=== PATIENT | female | born 1960 | race Two or more races ===

== ENCOUNTER → 2017-10-22 | Outpatient (CLI) | payer OTHER ==
[~2017-10-22] MED LIST: BENZONATATE200 M1 PO; CIPRO500 MG PO; CLONAZEPAM0.5 MG PO; DILTIAZEM HCL120 MG PO; FLONASE16 GM NASAL; FLUCONAZOLE100 MG PO; FOLIC ACID1 MG PO; Intestinex CAP PO; Lyrica PO; Mylicon 125MG PO; Neurin-Sl Tablet Sl SL; OXYC1TAB9 PO; PREDNISONE20 MG PO; PRISTIQ PO; RAMIPRIL5 MG PO; TAMSULOSIN HCL0.4 MG PO; VANCOMYCIN HCL1 GM PO; XARELTO20 MG PO; XOPENEX0.63 MG/3 IH
== END | disposition home or self-care (01) ==
LOC: NUCLEAR 09:33
DX: M81.0 Age-related osteoporosis without current pathological fracture (principal); Z13.820 Encounter for screening for osteoporosis

== ENCOUNTER 2017-11-21 11:38 | Outpatient (CLI) | payer OTHER | END 2017-11-21 11:47 | disposition home or self-care (01) | LOC: RAD 11:38 | DX: S22.32XA Fracture of one rib, left side, initial encounter for closed fracture (principal); S22.31XA Fracture of one rib, right side, initial encounter for closed fracture ==

== ENCOUNTER 2018-09-19 10:22 | Outpatient (CLI) | payer OTHER | END 2018-09-19 16:26 | disposition home or self-care (01) | LOC: NUCLEAR 10:22 | DX: I87.2 Venous insufficiency (chronic) (peripheral) (principal); I34.8 Other nonrheumatic mitral valve disorders; I26.90 Septic pulmonary embolism without acute cor pulmonale | CPT/HCPCS: 78580; 93306; 93970; A9540 ==

== ENCOUNTER 2018-09-25 07:25 | Outpatient (CLI) | payer OTHER | END 2018-09-25 07:38 | disposition home or self-care (01) | LOC: NUCLEAR 07:25 | DX: I20.9 Angina pectoris, unspecified (principal) | CPT/HCPCS: 78472; 78496; A9560 ==

== ENCOUNTER 2018-10-02 12:06 | Emergency (ER) | payer OTHER ==
[~2018-10-02] VITALS: Ht 160 cm; Wt 86.2 kg
== END 2018-10-02 16:27 | disposition home or self-care (01) ==
LOC: ER 12:06
DX: M54.5 Low back pain (principal)